=== PATIENT | female | born 1975 | race Native Hawaiian/Other Pacific Islander ===

== ENCOUNTER 2017-03-15 19:41 | Emergency (ER) | payer OTHER ==
[~2017-03-15] VITALS: Ht 154.9 cm; Wt 52.8 kg
[2017-03-15 20:31] VITALS: BP 130/94; TEMP 97.6
== END 2017-03-15 20:37 | disposition home or self-care (01) ==
LOC: ED 19:41
DX: L02.411 Cutaneous abscess of right axilla (principal)
CPT/HCPCS: 96372; 99282; J0696

== ENCOUNTER 2017-03-16 15:27 | Emergency (ER) | payer OTHER ==
[~2017-03-16] VITALS: Ht 154.9 cm; Wt 53.1 kg
[2017-03-16 15:35] VITALS: BP 190/115; TEMP 98.1
== END 2017-03-16 15:50 | disposition home or self-care (01) ==
LOC: ED 15:27
DX: S00.83XA Contusion of other part of head, initial encounter (principal)
CPT/HCPCS: 99281

== ENCOUNTER 2017-12-06 17:49 | Emergency (ER) | payer OTHER ==
[~2017-12-06] VITALS: Ht 154.9 cm; Wt 56.7 kg
[2017-12-06 18:25] LABS: PLATELET COUNT 448 K/uL (152-353)
[2017-12-06 18:34] LABS: POTASSIUM 4.1 mmol/L (3.6-5.2)
[2017-12-07 00:03] VITALS: BP 165/87; TEMP 97.7
== END 2017-12-07 00:03 | disposition home or self-care (01) ==
LOC: ED 17:49
DX: K59.09 Other constipation (principal); R31.9 Hematuria, unspecified
CPT/HCPCS: 36415; 74022; 80053; 81000; 85027; 96374; 99284; J1885

== ENCOUNTER 2018-04-04 14:12 | Emergency (ER) | payer OTHER ==
[~2018-04-04] VITALS: Ht 154.9 cm; Wt 59.0 kg
[2018-04-04 15:00] VITALS: BP 151/79; TEMP 97.8
== END 2018-04-04 15:00 | disposition home or self-care (01) ==
LOC: ED 14:12
DX: K52.89 Other specified noninfective gastroenteritis and colitis (principal)
CPT/HCPCS: 99281

== ENCOUNTER 2018-12-06 13:51 | Emergency (ER) | payer OTHER ==
[~2018-12-06] VITALS: Ht 154.9 cm; Wt 49.0 kg
[2018-12-06 14:00] VITALS: TEMP 98.1
[2018-12-06 14:20] VITALS: BP 140/95
== END 2018-12-06 15:35 | disposition home or self-care (01) ==
LOC: ED 13:51
DX: L03.032 Cellulitis of left toe (principal); L29.8 Other pruritus
CPT/HCPCS: 99282; Q0177

== ENCOUNTER 2019-11-04 03:17 | Emergency (ER) | payer OTHER ==
[~2019-11-04] VITALS: Ht 154.9 cm; Wt 61.2 kg
[2019-11-04 04:09] LABS: POTASSIUM 4.2 mmol/L (3.6-5.2)
[2019-11-04 04:27] LABS: PLATELET COUNT 381 K/uL (152-353)
[2019-11-04 06:35] VITALS: BP 103/70; TEMP 98.9
== END 2019-11-04 06:35 | disposition home or self-care (01) ==
LOC: ED 03:17
PROVIDERS: Family Medicine
DX: J02.0 Streptococcal pharyngitis (principal); R50.9 Fever, unspecified; J06.9 Acute upper respiratory infection, unspecified; Z03.818 Encounter for observation for suspected exposure to other biological agents ruled out; F17.210 Nicotine dependence, cigarettes, uncomplicated
CPT/HCPCS: 36415; 80053; 80307; 81000; 85027; 87502; 87635; 87651; 96374; 99284; J2405; U0002

== ENCOUNTER 2021-01-16 00:07 | Emergency (ER) | payer OTHER ==
[~2021-01-16] VITALS: Ht 154.9 cm; Wt 63.5 kg
[2021-01-16 01:45] VITALS: BP 138/88; TEMP 98.3
== END 2021-01-16 01:45 | disposition home or self-care (01) ==
LOC: ED 00:07
DX: J20.9 Acute bronchitis, unspecified (principal); Z20.822 Contact with and (suspected) exposure to COVID-19; F17.210 Nicotine dependence, cigarettes, uncomplicated
CPT/HCPCS: 87635; 94664; 96372; 99283; J1020; U0003

== ENCOUNTER 2023-02-03 11:48 | Outpatient (CLI) | payer OTHER | END 2023-02-03 21:22 | disposition home or self-care (01) | LOC: RAD 11:48 | PROVIDERS: ATTEND Registered Nurse | DX: R06.09 Other forms of dyspnea (principal) ==